=== PATIENT | male | born 1985 | race Caucasian/White ===

== ENCOUNTER 2017-12-24 19:22 | Emergency (ER) | payer OTHER, SELFPAY ==
[2017-12-24 19:26] VITALS: BP 129/87; PULSE 97; RESP 17; TEMP 37.3; O2SAT 96; BMI 30.8
[2017-12-24 20:24] VITALS: RESP 16
--- NOTE | 2017-12-24 20:37 | NURSING ---
PAGED OUT TO DR. BRUNO ZIMMER AT [id number]
--- NOTE | 2017-12-24 21:01 | ED.VISSUMM ---
- ER Visit Summary Date of Service: 12/24/17 Chief Complaint: Vasectomy incision bleeding History of Present Illness: The patient is a 32 M presenting with concern of vasectomy incision opening. Patient states he noticed a small drop of blood at his incision from vasectomy [address] Saenz in [place]. He has had no increasing pain, fever, or drainage. Denies other complaints. Physical Examination: Vitals are stable. Patient is afebrile. Alert no acute distress. HEENT exam is unremarkable. Neck is supple. Lungs are clear and equal bilaterally. Heart is regular rate and rhythm. Abdomen is soft nontender nondistended. : Incision scrotum intact, small amt dried blood, no evidence of infection Extremities are unremarkable. Skin is warm and dry. No focal neurologic deficit. Remainder of exam is unremarkable. Emergency Department Course and Treatment: Discussed with Dr. Saenz and small amount of bleeding is expected. Patient will follow-up at his scheduled appointment. Advised return to ED for worsening complaints. Disposition: Discharge home Impression: Postop wound check This note was generated with [employer] dictation software. It may contain incorrect words, spelling, and punctuation that were not noted in review of the chart prior to signing ED Disposition - Plan for ED Patient: Chief Complaint: Wound Check Referrals: [facility] Doctor,Out of [Primary Care Provider] -
--- NOTE | 2017-12-24 21:04 | ED.DEP ---
ED Disposition - Plan for ED Patient: Chief Complaint: Wound Check Instructions: ED Wound Check Post Op Bleeding Referrals: [facility] Doctor,Out of [Primary Care Provider] -
[2017-12-24 21:14] VITALS: BP 136/98; PULSE 88; RESP 16; O2SAT 98
== END 2017-12-24 21:16 | disposition home or self-care (01) ==
LOC: ED 21:10
PROVIDERS: Emergency Provider Emergency Medicine; Family Provider Family Medicine; PCP Family Medicine
DX: Z48.01 Encounter for change or removal of surgical wound dressing (principal); E11.9 Type 2 diabetes mellitus without complications; Z79.4 Long term (current) use of insulin; Z98.52 Vasectomy status
CPT/HCPCS: 99282